=== PATIENT | male | born 1990 | race Caucasian/White ===

== ENCOUNTER 2016-12-31 15:29 | Emergency (ER) | payer OTHER ==
[~2016-12-31] VITALS: Ht 175.3 cm; Wt 68.0 kg
[~2016-12-31 15:29] MED LIST: ALEVE220 M1 PO; NOHOMEMEDICATIONS; NORCO 5-325 TA1 EACH PO; PERCOCET 5-3251 EACH PO; ZOFRAN ODT4 MG PO
[2016-12-31 16:19] LABS: HEMATOCRIT 54.3 % (42.0-52.0); HEMOGLOBIN 18.9 gm/dL (14.0-18.0); MCH 31.7 pg (26.0-34.0); MCHC 34.8 g/dL (28.0-37.0); MCV 91.2 fL (80.0-100.0); PLATELET COUNT 243 thou/uL (150-400); RBC 5.95 mil/uL (4.50-6.00); RDW 12.8 % (10.5-14.5); WBC 19.1 thou/uL (4.0-11.0)
[2016-12-31 16:21] LABS: MANUAL DIFF YES
[2016-12-31 16:25] LABS: CALCIUM 9.6 mg/dL (8.5-10.1); CREATININE 1.4 mg/dL (0.7-1.3); POTASSIUM 3.9 mmol/L (3.5-5.1)
[2016-12-31 16:49] LABS: TOTAL CELL COUNT 100
[2016-12-31 16:50] LABS: LARGE PLATELETS RARE
[2016-12-31 17:06] LABS: ALBUMIN 5.2 g/dL (3.4-5.0); DIRECT BILIRUBIN 0.2 mg/dL (<0.1-0.3); TOTAL BILIRUBIN 1.2 mg/dL (<0.1-1.0); TOTAL PROTEIN 8.4 g/dL (6.4-8.2)
[2016-12-31] MEDS ORDERED: KEFLEX500 MG PO (17:23)
[2016-12-31] MEDS ORDERED: ZOFRAN ODT8 MG PO (17:24)
[2016-12-31 17:31] VITALS: BP 132/78
== END 2016-12-31 17:31 | disposition home or self-care (01) ==
LOC: ER 15:29
PROVIDERS: Physician Assistant
DX: R11.2 Nausea with vomiting, unspecified (principal); D72.829 Elevated white blood cell count, unspecified; B37.0 Candidal stomatitis; J02.0 Streptococcal pharyngitis; F17.210 Nicotine dependence, cigarettes, uncomplicated; F10.99 Alcohol use, unspecified with unspecified alcohol-induced disorder; Z71.6 Tobacco abuse counseling; Z98.890 Other specified postprocedural states; Z88.0 Allergy status to penicillin

== ENCOUNTER 2017-10-28 15:31 | Emergency (ER) | payer OTHER ==
[~2017-10-28] VITALS: Ht 175.3 cm; Wt 81.7 kg
[~2017-10-28 15:31] MED LIST changes: +KEFLEX500 MG PO; +ZOFRAN ODT8 MG PO
[2017-10-28] MEDS ORDERED: TYLENOL325 MG PO (15:42)
[2017-10-28 16:30] LABS: HEMATOCRIT 44.3 % (42.0-52.0); HEMOGLOBIN 15.4 gm/dL (14.0-18.0); MCH 31.6 pg (26.0-34.0); MCHC 34.7 g/dL (28.0-37.0); MCV 91.2 fL (80.0-100.0); RBC 4.85 mil/uL (4.50-6.00); RDW 13.1 % (10.5-14.5); WBC 6.6 thou/uL (4.0-11.0)
[2017-10-28 16:37] LABS: CREATININE 1.4 mg/dL (0.7-1.3)
[2017-10-28 17:06] VITALS: BP 123/66
== END 2017-10-28 17:07 | disposition home or self-care (01) ==
LOC: ER 15:31
PROVIDERS: Emergency Medicine
DX: R51 Headache (principal); F17.210 Nicotine dependence, cigarettes, uncomplicated; Z88.0 Allergy status to penicillin

== ENCOUNTER 2017-11-25 07:58 | Emergency (ER) | payer OTHER ==
[~2017-11-25] VITALS: Ht 175.3 cm; Wt 81.7 kg
[~2017-11-25 07:58] MED LIST changes: +TYLENOL325 MG PO
[2017-11-25] MEDS ORDERED: BUTALB-APAP-CA1 EACH PO (09:03)
[2017-11-25 09:22] VITALS: BP 122/70
== END 2017-11-25 09:23 | disposition home or self-care (01) ==
LOC: ER 07:58
DX: G43.909 Migraine, unspecified, not intractable, without status migrainosus (principal); F17.210 Nicotine dependence, cigarettes, uncomplicated; Z88.0 Allergy status to penicillin

== ENCOUNTER 2017-11-27 06:54 | Emergency (ER) | payer OTHER ==
[~2017-11-27] VITALS: Ht 175.3 cm; Wt 81.7 kg
[~2017-11-27 06:54] MED LIST changes: +BUTALB-APAP-CA1 EACH PO
[2017-11-27] MEDS ORDERED: PHENERGAN 25 MG25 M1 PO (07:50)
[2017-11-27 08:42] VITALS: BP 136/79
== END 2017-11-27 08:44 | disposition home or self-care (01) ==
LOC: ER 06:54
DX: G43.909 Migraine, unspecified, not intractable, without status migrainosus (principal); F17.210 Nicotine dependence, cigarettes, uncomplicated; Z88.0 Allergy status to penicillin

== ENCOUNTER 2017-12-01 06:35 | Emergency (ER) | payer OTHER ==
[~2017-12-01] VITALS: Ht 182.9 cm; Wt 79.4 kg
[~2017-12-01 06:35] MED LIST changes: +PHENERGAN 25 MG25 M1 PO
[2017-12-01] MEDS ORDERED: COMPAZINE5 M1 PO (08:09)
[2017-12-01 08:10] VITALS: BP 110/68
== END 2017-12-01 08:20 | disposition home or self-care (01) ==
LOC: ER 06:35
DX: G43.909 Migraine, unspecified, not intractable, without status migrainosus (principal); F17.210 Nicotine dependence, cigarettes, uncomplicated; Z88.0 Allergy status to penicillin

== ENCOUNTER 2017-12-29 08:31 | Emergency (ER) | payer OTHER ==
[~2017-12-29] VITALS: Ht 175.3 cm; Wt 81.7 kg
[~2017-12-29 08:31] MED LIST changes: +COMPAZINE5 M1 PO
[2017-12-29 09:09] LABS: ABSOLUTE NEUTROPHILS 4.6 thou/uL (1.4-8.2); EOSINOPHILS 2.2 % (0.0-3.0); HEMATOCRIT 44.9 % (42.0-52.0); HEMOGLOBIN 16.1 gm/dL (14.0-18.0); LYMPHOCYTES 30.2 % (24.0-44.0); MCH 32.3 pg (26.0-34.0); MCHC 35.8 g/dL (28.0-37.0); MCV 90.2 fL (80.0-100.0); MONOCYTES 7.7 % (1.0-8.0); PLATELET COUNT 212 thou/uL (150-400); POLYS 58.9 % (36.0-66.0); RBC 4.98 mil/uL (4.50-6.00); RDW 12.7 % (10.5-14.5); WBC 7.9 thou/uL (4.0-11.0)
[2017-12-29 09:12] LABS: AMP/METHAMP Negative (Negative); BARBITURATES Negative (Negative); BENZODIAZEPINES Negative (Negative); COCAINE Negative (Negative); METHADONE Negative (Negative); OPIATES Negative (Negative); PCP Negative (Negative)
[2017-12-29 09:14] LABS: ANION GAP 9 mmol/L (7-16); BUN 16 mg/dL (7-18); CALCIUM 8.8 mg/dL (8.5-10.1); CHLORIDE 103 mmol/L (98-107); CO2 26 mmol/L (21-32); CREATININE 1.4 mg/dL (0.7-1.3); GLUCOSE 105 mg/dL (74-106); POTASSIUM 3.8 mmol/L (3.5-5.1); SODIUM 138 mmol/L (136-145)
[2017-12-29 09:20] LABS: DIRECT BILIRUBIN < 0.1 mg/dL (<0.1-0.3); SALICYLATE 4.9 mg/dL (2.8-20.0); SGOT 20 U/L (15-37); SGPT 46 U/L (30-65); TOTAL BILIRUBIN 0.2 mg/dL (<0.1-1.0); TOTAL PROTEIN 6.8 g/dL (6.4-8.2)
[2017-12-29 09:43] LABS: PLATELET ESTIMATE NORMAL
[2017-12-29 10:04] VITALS: BP 109/73
== END 2017-12-29 09:40 | disposition home or self-care (01) ==
LOC: ER 08:31
PROVIDERS: Emergency Medicine
DX: T43.611A Poisoning by caffeine, accidental (unintentional), initial encounter (principal); Y92.89 Other specified places as the place of occurrence of the external cause; G47.9 Sleep disorder, unspecified; G43.909 Migraine, unspecified, not intractable, without status migrainosus; F17.210 Nicotine dependence, cigarettes, uncomplicated; Z88.0 Allergy status to penicillin

== ENCOUNTER 2018-01-01 08:45 | Emergency (ER) | payer OTHER ==
[~2018-01-01] VITALS: Ht 175.3 cm; Wt 81.7 kg
[2018-01-01] MEDS ORDERED: BUTALB-APAP-CA1 EACH PO (10:28)
[2018-01-01] MEDS ORDERED: IBUPROFEN 600600 M1 PO (10:28)
[2018-01-01 10:32] VITALS: BP 123/75
== END 2018-01-01 10:33 | disposition home or self-care (01) ==
LOC: ER 08:45
DX: G43.909 Migraine, unspecified, not intractable, without status migrainosus (principal); F17.210 Nicotine dependence, cigarettes, uncomplicated

== ENCOUNTER 2018-01-06 07:37 | Emergency (ER) | payer OTHER ==
[~2018-01-06] VITALS: Ht 175.3 cm; Wt 81.7 kg
[~2018-01-06 07:37] MED LIST changes: +IBUPROFEN 600600 M1 PO
[2018-01-06 07:38] VITALS: BP 116/80
== END 2018-01-06 08:20 | disposition home or self-care (01) ==
LOC: ER 07:37
DX: R51 Headache (principal); F17.210 Nicotine dependence, cigarettes, uncomplicated

== ENCOUNTER 2018-01-07 14:18 | Emergency (ER) | payer OTHER ==
[~2018-01-07] VITALS: Ht 175.3 cm; Wt 81.7 kg
[2018-01-07 14:23] VITALS: BP 121/71
[2018-01-07 14:45] LABS: ABSOLUTE NEUTROPHILS 4.6 thou/uL (1.4-8.2); EOSINOPHILS 2.3 % (0.0-3.0); HEMOGLOBIN 15.9 gm/dL (14.0-18.0); LYMPHOCYTES 28.6 % (24.0-44.0); MCH 32.1 pg (26.0-34.0); MCHC 35.2 g/dL (28.0-37.0); MCV 91.1 fL (80.0-100.0); MONOCYTES 6.4 % (1.0-8.0); PLATELET COUNT 206 thou/uL (150-400); POLYS 61.7 % (36.0-66.0); RBC 4.94 mil/uL (4.50-6.00); WBC 7.4 thou/uL (4.0-11.0)
[2018-01-07 15:13] LABS: CALCIUM 8.1 mg/dL (8.5-10.1); CREATININE 1.2 mg/dL (0.7-1.3); POTASSIUM 4.1 mmol/L (3.5-5.1)
[2018-01-07 16:51] VITALS: BP 103/65
[2018-01-07 17:21] VITALS: BP 113/76
== END 2018-01-07 17:22 | disposition left against medical advice (07) ==
LOC: ER 14:18 → EROBS 16:32
PROVIDERS: Physician Assistant
DX: G93.89 Other specified disorders of brain (principal); G43.909 Migraine, unspecified, not intractable, without status migrainosus; F17.210 Nicotine dependence, cigarettes, uncomplicated; R11.2 Nausea with vomiting, unspecified

== ENCOUNTER 2018-01-12 14:47 | Emergency (ER) | payer OTHER ==
[~2018-01-12] VITALS: Ht 175.3 cm; Wt 81.7 kg
[2018-01-12] MEDS ORDERED: COMPAZINE10 MG PO (16:17)
[2018-01-12 16:37] VITALS: BP 129/84
== END 2018-01-12 16:40 | disposition home or self-care (01) ==
LOC: ER 14:47
DX: G43.909 Migraine, unspecified, not intractable, without status migrainosus (principal); F17.210 Nicotine dependence, cigarettes, uncomplicated